=== PATIENT | male | born 1980 | race Caucasian/White ===

== ENCOUNTER 2017-06-19 16:56 | Emergency (ER) | payer OTHER ==
[~2017-06-19] VITALS: Ht 182.9 cm; Wt 82.0 kg
[2017-06-19 16:59] VITALS: BP 136/94
[2017-06-19] MEDS ORDERED: HYDROcodone/APAP 5/325 TABLET PO ONE (18:30)
[2017-06-19] MEDS ORDERED: ONDANSETRON ODT 4 MG PO ONE (18:30)
[2017-06-19] MEDS ORDERED: ONDANSETRON ODT 4 MG ONE (18:55)
[2017-06-19] MEDS ORDERED: HYDROcodone/APAP 5/325 TABLET ONE (18:55)
[2017-06-19 19:07] LABS: HEMATOCRIT 40.2 % (39.2-51.8); HEMOGLOBIN 13.7 g/dL (13.7-18.0); WHITE BLOOD COUNT 9.8 x10^3/uL (3.4-10)
[2017-06-19 19:17] LABS: BLOOD UREA NITROGEN 9 mg/dL (7-18)
== END 2017-06-19 21:11 | disposition home or self-care (01) ==
LOC: ED 20:45
DX: S16.1XXA Strain of muscle, fascia and tendon at neck level, initial encounter (principal); S93.402A Sprain of unspecified ligament of left ankle, initial encounter; M25.421 Effusion, right elbow; E11.9 Type 2 diabetes mellitus without complications; I10 Essential (primary) hypertension; W17.89XA Other fall from one level to another, initial encounter; Y93.89 Activity, other specified; Y92.488 Other paved roadways as the place of occurrence of the external cause; Y99.8 Other external cause status
CPT/HCPCS: 29105; 36415; 72125; 73080; 73610; 80048; 85025; 85651; 86140; 99285; Q0162

== ENCOUNTER 2017-07-10 10:58 | Inpatient (IN) | payer MEDICAID, OTHER ==
[~2017-07-10] VITALS: Ht 182.9 cm; Wt 81.8 kg
[2017-07-10] MEDS ORDERED: SODIUM CHLORIDE FLUSH 10ML SYR IVF ONE (12:00)
[2017-07-10 12:11] LABS: HEMATOCRIT 42.5 % (39.2-51.8); HEMOGLOBIN 14.3 g/dL (13.7-18.0); WHITE BLOOD COUNT 8.6 x10^3/uL (3.4-10)
[2017-07-10 12:22] LABS: BLOOD UREA NITROGEN 16 mg/dL (7-18)
[2017-07-10] MEDS ORDERED: CLINDAMYCIN PMX 300MG/50ML 50 ML IV ONE (12:30)
[2017-07-10] MEDS ORDERED: LIDOCAINE 1%, 20ML ONE (15:49)
[2017-07-10] MEDS ORDERED: SODIUM CHLORIDE FLUSH 10ML SYR IVF PRN (16:30)
[2017-07-10 17:17] VITALS: BP 115/81
[2017-07-10] MEDS ORDERED: ONDANSETRON ODT 4 MG PO PRN (17:30)
[2017-07-10] MEDS ORDERED: LABETALOL 5MG/ML, 20ML IVPush PRN (17:30)
[2017-07-10] MEDS ORDERED: ONDANSETRON 2MG/ML, 2ML IVPush PRN (17:30)
[2017-07-10] MEDS ORDERED: VANCOMYCIN PER PHARMACY MC PRN (17:30)
[2017-07-10] MEDS ORDERED: ENALAPRILAT 1.25 MG/ML, 2ML IVPush PRN (17:30)
[2017-07-10] MEDS ORDERED: POLYETHYLENE GLYCOL 17 GM PACKET PO PRN (17:30)
[2017-07-10] MEDS ORDERED: BISACODYL 10 MG SUPP PR PRN (17:30)
[2017-07-10] MEDS ORDERED: DOCUSATE 100 MG CAPSULE PO PRN (17:30)
[2017-07-10] MEDS ORDERED: PHARMACOKINETIC MONITORING MC PRN (18:00)
[2017-07-10] MEDS ORDERED: PHARMACOKINETIC CONSULTATION MC ONE (18:00)
[2017-07-10] MEDS ORDERED: LORazepam 0.5MG TABLET PO PRN (18:00)
[2017-07-10] MEDS: ENOXAPARIN 80 MG/0.8 ML SQ SCH (18:28)
[2017-07-10] MEDS: VANCOMYCIN 1,600 MG in SODIUM CHLORIDE 0.9% 250 ML IV SCH (18:28)
[2017-07-10] MEDS: NICOTINE 21 MG/24 HR PATCH.TD24 TD SCH (18:28)
[2017-07-10 19:53] VITALS: BP 117/64
[2017-07-11] MEDS: PIPERACILLIN/TAZO/PMX 3.375GM 50 ML IV SCH ×3 (00:55→17:29)
[2017-07-11 04:05] VITALS: BP 115/75
[2017-07-11 05:13] LABS: HEMATOCRIT 41.1 % (39.2-51.8); WHITE BLOOD COUNT 9.7 x10^3/uL (3.4-10)
[2017-07-11 05:24] LABS: BLOOD UREA NITROGEN 17 mg/dL (7-18)
[2017-07-11] MEDS: ENOXAPARIN 80 MG/0.8 ML SQ SCH (06:03)
[2017-07-11] MEDS: VANCOMYCIN 1,600 MG in SODIUM CHLORIDE 0.9% 250 ML IV SCH ×2 (06:03→18:29)
[2017-07-11 07:24] VITALS: BP 134/78
[2017-07-11] MEDS ORDERED: PROPOFOL 10 MG/ML, 20ML ONE ×2 (10:11→21:20)
[2017-07-11] MEDS ORDERED: GADOBUTROL 7.5 MMOL/7.5 ML PFS ONE (13:50)
[2017-07-11 15:40] VITALS: BP 117/79
[2017-07-11] MEDS: NICOTINE 21 MG/24 HR PATCH.TD24 TD SCH (17:29)
[2017-07-11 19:49] VITALS: BP 119/63
[2017-07-11] MEDS ORDERED: FENTANYL PF 250 MCG/5ML ONE (20:50)
[2017-07-11] MEDS ORDERED: MIDAZOLAM 1 MG/ML, 2ML ONE (20:50)
[2017-07-11] MEDS ORDERED: BUPIVACAINE/PF 0.5% ONE (21:14)
[2017-07-11] MEDS ORDERED: ONDANSETRON 2MG/ML, 2ML ONE (21:20)
[2017-07-11] MEDS ORDERED: DEXAMETHASONE 4 MG/ML, 1ML ONE (21:20)
[2017-07-11] MEDS ORDERED: CEFAZOLIN 1,000 MG ONE (21:20)
[2017-07-11] MEDS ORDERED: OXYcodone 5 MG/5 ML ORAL.SOL UDC PO PRN (21:30)
[2017-07-11] MEDS ORDERED: METOPROLOL 1 MG/ML, 5ML IV PRN (21:30)
[2017-07-11] MEDS ORDERED: PROMETHAZINE 25 MG/ML, 1ML IV PRN (21:30)
[2017-07-11] MEDS ORDERED: HYDROmorphone 1 MG/ML, 1ML IV PRN (21:30)
[2017-07-11] MEDS ORDERED: MEPERIDINE/PF 25MG/0.5ML IVPush PRN (21:30)
[2017-07-11] MEDS ORDERED: hydrALAzine 20 MG/ML, 1ML IV PRN (21:30)
[2017-07-11] MEDS ORDERED: MIDAZOLAM 1 MG/ML, 2ML IV PRN (21:30)
[2017-07-11] MEDS ORDERED: ACETAMINOPHEN 325 MG TABLET PO PRN (21:30)
[2017-07-11] MEDS ORDERED: ALBUTEROL SULFATE 2.5 MG/3 ML NPPB PRN (21:30)
[2017-07-11] MEDS ORDERED: BUPIVACAINE/PF 0.5% INFIL ONE (21:45)
[2017-07-11] MEDS ORDERED: FENTANYL PF 100 MCG/2ML ONE (22:06)
[2017-07-11] MEDS ORDERED: OXYcodone 5 MG/5 ML ORAL.SOL UDC ONE ×2 (22:06→22:16)
[2017-07-11] MEDS: FENTANYL PF 100 MCG/2ML IV PRN ×2 (22:10→22:43)
[2017-07-12 00:22] VITALS: BP 124/77
[2017-07-12] MEDS: PIPERACILLIN/TAZO/PMX 3.375GM 50 ML IV SCH ×3 (00:59→16:51)
[2017-07-12 04:21] VITALS: BP 115/73
[2017-07-12] MEDS: VANCOMYCIN 1,600 MG in SODIUM CHLORIDE 0.9% 250 ML IV SCH ×2 (06:03→18:06)
[2017-07-12 06:44] VITALS: BP 114/69
[2017-07-12] MEDS ORDERED: ASPIRIN 81 MG TABLET CHEW PO ONE (10:00)
[2017-07-12] MEDS ORDERED: MORPHINE SULFATE 4 MG/ML, 1ML IVPush ONE (10:00)
[2017-07-12] MEDS ORDERED: MAGNESIUM SULFATE PMX 2GM/50ML 50 ML IV ONE (10:00)
[2017-07-12] MEDS ORDERED: morphine SULFATE 10 MG/ML, 1ML ONE (10:03)
[2017-07-12 10:45] LABS: IS PT STATUS REG ER OR PRE ER? NO
[2017-07-12 13:06] VITALS: BP 115/71
[2017-07-12 16:41] LABS: IS PT STATUS REG ER OR PRE ER? NO
[2017-07-12] MEDS: ENOXAPARIN 40 MG/0.4 ML SQ SCH (16:51)
[2017-07-12] MEDS: NICOTINE 21 MG/24 HR PATCH.TD24 TD SCH (16:52)
[2017-07-12 19:39] VITALS: BP 126/77
[2017-07-12 22:48] LABS: IS PT STATUS REG ER OR PRE ER? NO
[2017-07-13] MEDS: PIPERACILLIN/TAZO/PMX 3.375GM 50 ML IV SCH ×3 (02:18→21:50)
[2017-07-13 05:27] VITALS: BP 132/73
[2017-07-13] MEDS: VANCOMYCIN 1,600 MG in SODIUM CHLORIDE 0.9% 250 ML IV SCH ×2 (05:45→17:53)
[2017-07-13 07:04] VITALS: BP 121/84
[2017-07-13 12:56] VITALS: BP 125/71
[2017-07-13] MEDS: ENOXAPARIN 40 MG/0.4 ML SQ SCH (17:53)
[2017-07-13] MEDS: NICOTINE 21 MG/24 HR PATCH.TD24 TD SCH (17:53)
[2017-07-13 19:32] VITALS: BP 157/96
[2017-07-14 03:00] VITALS: BP 120/77
[2017-07-14 04:54] LABS: HEMOGLOBIN 14.2 g/dL (13.7-18.0); WHITE BLOOD COUNT 6.6 x10^3/uL (3.4-10)
[2017-07-14 05:03] LABS: BLOOD UREA NITROGEN 18 mg/dL (7-18)
[2017-07-14] MEDS: PIPERACILLIN/TAZO/PMX 3.375GM 50 ML IV SCH ×3 (05:40→21:07)
[2017-07-14] MEDS: VANCOMYCIN 1,600 MG in SODIUM CHLORIDE 0.9% 250 ML IV SCH ×2 (06:40→18:39)
[2017-07-14 07:24] VITALS: BP 115/73
[2017-07-14 13:42] VITALS: BP 133/84
[2017-07-14] MEDS: NICOTINE 21 MG/24 HR PATCH.TD24 TD SCH (17:47)
[2017-07-14] MEDS: ENOXAPARIN 40 MG/0.4 ML SQ SCH (17:47)
[2017-07-14] MEDS ORDERED: ERGOCALCIFEROL 50,000 UNIT CAPSULE PO SCH (18:30)
[2017-07-14 19:39] VITALS: BP 115/78
[2017-07-15 00:49] VITALS: BP 128/83
[2017-07-15] MEDS: PIPERACILLIN/TAZO/PMX 3.375GM 50 ML IV SCH (05:31)
[2017-07-15] MEDS: VANCOMYCIN 1,600 MG in SODIUM CHLORIDE 0.9% 250 ML IV SCH (06:09)
[2017-07-15 07:19] VITALS: BP 123/81
[2017-07-15] MEDS ORDERED: CLIN300C8 PO (11:59)
[2017-07-15] MEDS ORDERED: LACT1CAP24 PO (11:59)
[2017-07-15] MEDS ORDERED: ERGO500017 PO (11:59)
== END 2017-07-15 12:10 | disposition home or self-care (01) | DRG 603 ==
LOC: ED 12:15 → EDIP 16:17 → 4NOR 17:05
PROVIDERS: ADMIT Internal Medicine; ATTEND Internal Medicine
DX: L03.113 Cellulitis of right upper limb (principal); M00.9 Pyogenic arthritis, unspecified; E55.9 Vitamin D deficiency, unspecified; F15.10 Other stimulant abuse, uncomplicated; F17.210 Nicotine dependence, cigarettes, uncomplicated; I10 Essential (primary) hypertension; Z71.6 Tobacco abuse counseling
CPT/HCPCS: 36415; 80048; 80202; 82040; 82306; 83735; 84100; 84484; 85025; 85651; 86140; 87040; 87070; 87075; 87176; 87205; 88305; 93005; 93306; 96365; A9585; J0690; J1100; J1650; J2250; J2405; J2543; J2704; J3010; J3370; J3490; J3475; J7050